=== PATIENT | female | born 1950 | race Caucasian/White ===

== ENCOUNTER 2017-09-01 06:48 | Day surgery (SDC) | payer MEDICARE ==
[~2017-09-01] VITALS: Ht 157.5 cm; Wt 71.8 kg
[~2017-09-01 06:48] MED LIST: ACET-703 PO; ALPR.25 PO; LEVO.1 PO; PERC5TAB12 PO; VITA100064 PO
[2017-09-01 07:00] VITALS: BP 143/57; PULSE 49; RESP 20; TEMP 97.9; O2SAT 98
[2017-09-01] MEDS ORDERED: TYLE325T PO (07:15)
[2017-09-01] MEDS ORDERED: ceFAZolin 2 GM PREMIX 50 ML - implanted port removal IV SCH ×2 (07:15→08:30)
[2017-09-01] MEDS ORDERED: SERT-132 PO (07:15)
[2017-09-01 07:58] LABS: BASOPHIL % 0.5 % (0.0-2.0); EOSINOPHIL # 0.2 TH/MM3 (0-0.4); EOSINOPHIL % 3.4 % (0.0-4.0); HEMATOCRIT 40.3 % (35.0-46.0); HEMO FLAGS DIFF FINAL; LYMPH % 34.9 % (9.0-44.0); LYMPHOCYTE # 2.1 TH/MM3 (1.0-4.8); MEAN CELL VOLUME 91.8 FL (80.0-100.0); MEAN CORPUSCULAR HGB CONC 33.7 % (32.0-36.0); MONO % 10.6 % (0.0-8.0); NEUT % 50.6 % (16.0-70.0); PLATELET COUNT 212 TH/MM3 (150-450); RED BLOOD COUNT 4.39 MIL/MM3 (4.00-5.30)
[2017-09-01 08:07] LABS: APTT (PATIENT) 22.9 SEC (24.3-30.1); PROTHROMBIN TIME - PATIENT 10.6 SEC (9.8-11.6)
[2017-09-01] MEDS ORDERED: SODIUM BICARBONATE 8.4% INJ 50 ML ONE (08:28)
[2017-09-01] MEDS ORDERED: SODIUM CHLORIDE 0.9% 1000 ML IV SCH (08:30)
--- NOTE | 2017-09-01 08:48 | PD.RAD ---
Post Procedure Progress Note Pre Procedure Diagnosis: (1) Bladder cancer Post Procedure Diagnosis: (1) Bladder cancer Procedure Date: Sep 01, 2017 Supervising Radiologist: Hermelindo Keys Estimated blood loss: 2cc Plan of Activity Patient to Unit: ROPU Patient Condition: Good Additional Comments: Port removed from the right chest without difficulty. See PACS Report for procedural detail/treatment Hermelinod Keys MD Sep 01, 2017 08:47
[2017-09-01 08:50] VITALS: BP 121/58; PULSE 48; RESP 20; TEMP 98.1; O2SAT 98
[2017-09-01 09:29] VITALS: BP 148/84; PULSE 77; RESP 16; O2SAT 97
--- NOTE | 2017-09-01 10:47 | RADRPT ---
EXAM DATE/TIME: 09/01/2017 00:00 [place] COMPARISON: [id number] PLCMT, POWERPORT, W US, RIGHT, October 10, 2016, 8:52. INDICATIONS : Patient with history of bladder cancer in need of Zrqcs-a-[id number] removal. MEDICAL HISTORY : Bladder cancer, PE, DVT, Hypothyroidism, Urothelial carcinoma SURGICAL HISTORY : TURBT, Cholecystectomy, Port, Radical cystectomy, Colonoscopy ENCOUNTER: Subsequent ACUITY: > 1 year PAIN SCORE: 0/10 Prophylactic antibiotics were administered with appropriate pre-procedure timing. Vancomycin within 2 hrs of procedure, Ancef (or alternative) within 1 hr of procedure. PROCEDURE : 1. Removal of Rkmclb-[id number]-[id number]. 2. Conscious sedation with continuous EKG and oximetry monitoring. The risk, benefits and potential complications of Hxsupr-r-Mbhd removal were discussed. Written conse nt was obtained. The patient was placed supine. The chest wall was prepped in sterile fashion. Full sterile techniqu e was used, including cap, mask, sterile gloves and gown, and a large sterile sheet. Hand hygiene an d 2% chlorhexidine and/or Betadine/alcohol prep was utilized per protocol for cutaneous antisepsis. The skin and subcutaneous tissues were infiltrated with local anesthetic solution. A small incision w as made, the subcutaneous pocket was opened. The port was dissected from the subcutaneous tissues and easily removed in one piece. The pocket incision was closed with subcuticular Vicryl suture. Steri -Strips were applied. No sedation was given. EKG and oximetry remained stable throughout the procedure. The patient tolerat ed the procedure well and there were no complications. The patient was sent to post anesthesia [facility] in stable condition. CONCLUSION: Uncomplicated port removal as above. Hermelindo Keys MD on September 01, 2017 at 10:45 Board Certified Radiologist. This report was verified electronically.
== END 2017-09-01 09:34 | disposition home or self-care (01) ==
LOC: HROP 06:48 → HRIP 06:48 → HROP 09:34
PROVIDERS: ATTEND Internal Medicine Hematology
DX: Z45.2 Encounter for adjustment and management of vascular access device (principal); C67.9 Malignant neoplasm of bladder, unspecified; E03.9 Hypothyroidism, unspecified; I82.409 Acute embolism and thrombosis of unspecified deep veins of unspecified lower extremity
CPT/HCPCS: 36590; 85025; 85610; 85730; J0690